=== PATIENT | male | born 1960 | race Caucasian/White ===

== ENCOUNTER 2021-03-29 15:37 | Emergency (ER) | payer MEDICARE ==
[2021-03-29 16:02] VITALS: BP 109/42; PULSE 82
--- NOTE | 2021-03-29 16:43 | EDM.PDOC ---
ED HPI GENERAL MEDICAL PROBLEM - General Chief Complaint: Skin Complaint Stated Complaint: POSSIBLE INCISION INFECTION Time Seen by Provider: 03/29/21 16:20 Source of Information: Reports: Patient, Family History Limitations: Reports: No Limitations - History of Present Illness INITIAL COMMENTS - FREE TEXT/NARRATIVE: 60-year-old male with type 1 diabetes since he was 13 years old, had a four- vessel bypass surgery 10 days ago. He has had persistent swelling and bruising in his lower extremities especially the left side where most of the vein was harvested but over the past 12 hours he has developed erythema and slight warmth on the anterior aspect of the leg. No fevers or chills, he feels okay but his is very concerned that he is developing an infection. Onset: Gradual Duration: Hour(s): (Redness has shown up just in the last 12 hours) Location: Reports: Lower Extremity, Left Associated Symptoms: Reports: Chest Pain (Postsurgical pain as expected), Weakness. Denies: Fever/Chills, Shortness of Breath chest Pain Score (Numeric/FACES): 3 - Related Data Allergies Allergy/AdvReac Type Severity Reaction Status Date / Time Sulfa (Sulfonamide Allergy Headache Verified 03/29/21 16:01 Antibiotics) bee venom Allergy Hives Uncoded 03/29/21 16:01 Home Meds: Home Meds Clopidogrel [Plavix] 75 mg PO DAILY 11/08/14 [History] Lisinopril 40 mg PO DAILY 11/08/14 [History] Insulin NPH Human Isophane [Novolin N] 50 units SUBCUT BID 11/17/17 [History] Insulin Regular, Human [NovoLIN R] 20 unit SQ BID 11/17/17 [History] DULoxetine [Cymbalta] 20 mg PO BID 01/03/21 [History] Aspirin [Adult Low Dose Aspirin EC] 81 mg PO DAILY 03/29/21 [History] Ferrous Sulfate 325 mg PO DAILY 03/29/21 [History] Furosemide 80 mg PO BID 03/29/21 [History] Metoprolol Tartrate 75 mg PO BID 03/29/21 [History] Potassium Chloride 20 meq PO DAILY 03/29/21 [History] atorvaSTATin [Lipitor] 40 mg PO BEDTIME 03/29/21 [History] metOLazone [Zaroxolyn] 2.5 mg PO DAILY 03/29/21 [History] oxyCODONE HCl/Acetaminophen [Oxycodone-Acetaminophen 5-325] 1 tab PO Q6H PRN 03/29/21 [History] Past Medical History HEENT History: Reports: Impaired Vision, Other (See Below) Other HEENT History: retinopothy. 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: 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 Hematologic History: Reports: Anticoagulation Therapy, Other (See Below) Other Hematologic History: On Plavix - Infectious Disease History Infectious Disease History: Reports: Chicken Pox - Past Surgical History HEENT Surgical History: Reports: Laser Surgery Cardiovascular Surgical History: Reports: Coronary Artery Bypass, Other (See Below) Other Cardiovascular Surgeries/Procedures: Stent in left upper thigh GI Surgical History: Reports: None Male Surgical History: Reports: None Endocrine Surgical History: Reports: None Neurological Surgical History: Reports: None Musculoskeletal Surgical History: Reports: Carpal Tunnel Social & Family History - Family History Cardiac: Reports: Hypertension, [place] Endocrine/Metabolic: Reports: Diabetes, type II - Tobacco Use Tobacco Use Status *Q: Never Tobacco User Second Hand Smoke Exposure: No - Caffeine Use Caffeine Use: Reports: Coffee, Soda - Alcohol Use Days Per Week of Alcohol Use: 0 - Recreational Drug Use Recreational Drug Use: No ED ROS GENERAL - Review of Systems Review Of Systems: See Below Constitutional: Denies: Fever, Chills HEENT: Reports: No Symptoms Respiratory: Denies: Shortness of Breath, Cough GI/Abdominal: Denies: Nausea, Vomiting Skin: Reports: Erythema (Erythema is present on the anterior aspect of the left lower leg, minimal warmth compared to surrounding skin), Other (Small healing ulcer on the base of the left foot, widespread bruising especially of the inner aspect of the left leg) Neurological: Reports: Other (Fairly significant diabetic neuropathy of the lower extremities) Psychiatric: Reports: No Symptoms ED EXAM, SKIN/RASH Exam: See Below Exam Limited By: No Limitations General Appearance: Alert, No Apparent Distress Head: Atraumatic Respiratory/Chest: No Respiratory Distress, Lungs Clear Cardiovascular: Regular Rate, Rhythm GI/Abdominal: Non-Tender Extremities: Other (Significant bruising on the inside of the left thigh extending down to the posterior calf on the left leg. Some anterior erythema on the lower leg which is slightly warmer than surrounding skin. No streaks.) Psychiatric: Normal Affect, Normal Mood Course - Vital Signs Last Recorded V/S: Last Vital Signs Temp 98.1 F 03/29/21 16:19 Pulse 82 03/29/21 16:19 Resp 16 03/29/21 16:19 BP 109/42 L 03/29/21 16:19 Pulse Ox 95 03/29/21 16:19 - Re-Assessments/Exams Free Text/Narrative Re-Assessment/Exam: 03/29/21 16:41 Patient was started on cephalexin 500 mg 3 times a day for the next 7 days, he does have a postop check with his surgeon in 2 days. Because the patient is not feverish and the erythema is not significantly warm, this may be just postoperative changes or vasculitis and not infection but the risk of not treating an early infection is too great in this patient. Recheck in 2 days unless worsening. Departure - Departure Time of Disposition: 17:20 Disposition: Home, Self-Care 01 Clinical Impression: Cellulitis of left lower extremity Diabetes mellitus Qualifiers: Diabetes mellitus type: type 1 Diabetes mellitus complication status: with circulatory complication Diabetes mellitus complication detail: with other circulatory complications Qualified Code(s): E10.59 - Type 1 diabetes mellitus with other circulatory complications - Discharge Information Instructions: Cellulitis, Adult Referrals: Floyd Borrego MD [Primary Care Provider] - Forms: ED Department Discharge Care Plan Goals: Take antibiotic 3 times a day until gone, recheck on Wednesday as scheduled and return anytime if worsening such as vomiting the medication, persistent fever or chills, or difficulty breathing. Sepsis Event Note (ED) - Evaluation Sepsis Screening Result: No Definite Risk - Focused Exam Vital Signs: Vital Signs Temp Pulse Resp BP Pulse Ox 03/29/21 16:19 98.1 F 82 16 109/42 L 95 03/29/21 15:56 98.1 F 82 16 109/42 L 95
== END 2021-03-29 17:10 | disposition home or self-care (01) ==
LOC: JP.ED 15:37
DX: L03.116 Cellulitis of left lower limb (principal); E10.59 Type 1 diabetes mellitus with other circulatory complications; E78.00 Pure hypercholesterolemia, unspecified; I10 Essential (primary) hypertension; I25.2 Old myocardial infarction; E66.9 Obesity, unspecified; Z68.30 Body mass index [BMI] 30.0-30.9, adult; Z95.5 Presence of coronary angioplasty implant and graft; Z79.82 Long term (current) use of aspirin; Z79.02 Long term (current) use of antithrombotics/antiplatelets; Z79.899 Other long term (current) drug therapy
CPT/HCPCS: 99283

== ENCOUNTER 2021-09-21 13:02 | Emergency (ER) | payer MEDICARE | END 2021-09-21 13:19 | disposition left against medical advice (07) | LOC: JP.ED 13:02 | DX: S09.301A Unspecified injury of right middle and inner ear, initial encounter (principal); Z53.21 Procedure and treatment not carried out due to patient leaving prior to being seen by health care provider ==

== ENCOUNTER 2021-09-21 17:56 | Emergency (ER) | payer MEDICARE ==
[2021-09-21 18:39] VITALS: BP 124/49; PULSE 84
--- NOTE | 2021-09-21 18:52 | EDM.PDOC ---
ED HPI GENERAL MEDICAL PROBLEM - General Chief Complaint: ENT Problem Stated Complaint: Q-TIP BROKE OFF IN EAR Time Seen by Provider: 09/21/21 18:40 Source of Information: Reports: Patient History Limitations: Reports: No Limitations - History of Present Illness INITIAL COMMENTS - FREE TEXT/NARRATIVE: 61-year-old male with a foreign body in his right ear canal. Earlier today he was using a Q-tip, when he pulled the Q-tip out the cotton was gone and he feels a foreign body sensation in the ear. There is no pain. No other complaints. Onset: Sudden Duration: Hour(s): (About 8 hours ago) Location: Reports: Other (Right ear) Associated Symptoms: Reports: No Other Symptoms denies Pain Score (Numeric/FACES): 0 - Related Data Allergies Allergy/AdvReac Type Severity Reaction Status Date / Time Sulfa (Sulfonamide Allergy Headache Verified 09/21/21 18:48 Antibiotics) bee venom Allergy Hives Uncoded 09/21/21 18:48 Home Meds: Home Meds Clopidogrel [Plavix] 75 mg PO DAILY 11/08/14 [History] Lisinopril 40 mg PO DAILY 11/08/14 [History] Insulin NPH Human Isophane [Novolin N] 50 units SUBCUT BID 11/17/17 [History] Insulin Regular, Human [NovoLIN R] 20 unit SQ BID 11/17/17 [History] DULoxetine [Cymbalta] 20 mg PO BID 01/03/21 [History] Aspirin [Adult Low Dose Aspirin EC] 81 mg PO DAILY 03/29/21 [History] Furosemide 80 mg PO BID 03/29/21 [History] Metoprolol Tartrate 75 mg PO BID 03/29/21 [History] Potassium Chloride 20 meq PO DAILY 03/29/21 [History] atorvaSTATin [Lipitor] 40 mg PO BEDTIME 03/29/21 [History] metOLazone [Zaroxolyn] 2.5 mg PO DAILY 03/29/21 [History] Past Medical History HEENT History: Reports: Impaired Vision, Other (See Below) Other HEENT History: retinopothy. laser eye surgery Cardiovascular History: Reports: High Cholesterol, Hypertension, [place], Stents Other Cardiovascular History: heart attack x 3 Gastrointestinal History: Reports: Other (See Below) Other Gastrointestinal History: Gastro parsesis Genitourinary History: Reports: Other (See Below) Other Genitourinary History: frequency Musculoskeletal History: Reports: Fracture, Osteoarthritis Other Musculoskeletal History: right shoulder impingement syndrome Psychiatric History: Reports: Anxiety Endocrine/Metabolic History: Reports: Diabetes, Type I, Obesity/BMI 30+ Other Endocrine/Metabolic History: meterman insulin use Hematologic History: Reports: Anticoagulation Therapy, Other (See Below) Other Hematologic History: On Plavix - Infectious Disease History Infectious Disease History: Reports: Chicken Pox - Past Surgical History HEENT Surgical History: Reports: Laser Surgery Cardiovascular Surgical History: Reports: Coronary Artery Bypass, Other (See Below) Other Cardiovascular Surgeries/Procedures: Stent in left upper thigh GI Surgical History: Reports: None Male Surgical History: Reports: None Endocrine Surgical History: Reports: None Neurological Surgical History: Reports: None Musculoskeletal Surgical History: Reports: Carpal Tunnel Social & Family History - Family History Cardiac: Reports: Hypertension, [place] Endocrine/Metabolic: Reports: Diabetes, type II - Caffeine Use Caffeine Use: Reports: Coffee, Soda ED ROS ENT - Review of Systems Review Of Systems: See Below Constitutional: Denies: Fever, Chills HEENT: Reports: Other (Foreign body right ear) Respiratory: Reports: No Symptoms GI/Abdominal: Reports: No Symptoms Skin: Reports: No Symptoms Neurological: Reports: No Symptoms ED EXAM, ENT - Physical Exam Exam: See Below Exam Limited By: No Limitations General Appearance: Alert, No Apparent Distress Ears: Other (Left ear canal is clear, the right appears to have a fairly large white foreign body) Head: Atraumatic Respiratory/Chest: No Respiratory Distress Neurological: Alert, Oriented Psychiatric: Normal Affect, Normal Mood Skin: Warm, Dry Course - Vital Signs Last Recorded V/S: Last Vital Signs Temp 98.0 F 09/21/21 18:49 Pulse 84 09/21/21 18:49 Resp 16 09/21/21 18:49 BP 124/49 L 09/21/21 18:49 Pulse Ox 95 09/21/21 18:49 - Re-Assessments/Exams Free Text/Narrative Re-Assessment/Exam: 09/21/21 18:51 A small alligator clamp was used to gently remove the large piece of cotton. This was done without complications or difficulty. Reexamination showed a clean canal. No further treatment needed. Departure - Departure Time of Disposition: 18:54 Disposition: Home, Self-Care 01 Clinical Impression: Acute foreign body of right ear canal Qualifiers: Encounter type: initial encounter Qualified Code(s): T16.1XXA - Foreign body in right ear, initial encounter - Discharge Information Instructions: Ear Foreign Body, [id number] Referrals: Floyd Borrego MD [Primary Care Provider] - Forms: ED Department Discharge Care Plan Goals: Return as needed. Sepsis Event Note (ED) - Focused Exam Vital Signs: Vital Signs Temp Pulse Resp BP Pulse Ox 09/21/21 18:49 98.0 F 84 16 124/49 L 95 09/21/21 18:38 98.0 F 84 16 124/49 L 95
== END 2021-09-21 18:56 | disposition home or self-care (01) ==
LOC: JP.ED 17:56
DX: T16.1XXA Foreign body in right ear, initial encounter (principal); E78.00 Pure hypercholesterolemia, unspecified; I10 Essential (primary) hypertension; I25.2 Old myocardial infarction; M19.90 Unspecified osteoarthritis, unspecified site; E10.43 Type 1 diabetes mellitus with diabetic autonomic (poly)neuropathy; K31.84 Gastroparesis; E66.9 Obesity, unspecified; Z68.34 Body mass index [BMI] 34.0-34.9, adult; Z88.2 Allergy status to sulfonamides; Z91.030 Bee allergy status; Z79.02 Long term (current) use of antithrombotics/antiplatelets; Z79.82 Long term (current) use of aspirin; Z79.899 Other long term (current) drug therapy
CPT/HCPCS: 69200; 99282-25

== ENCOUNTER 2022-09-13 20:43 | Emergency (ER) | payer MEDICARE ==
[2022-09-13 21:11] VITALS: BP 164/61; PULSE 84
== END 2022-09-13 23:24 | disposition home or self-care (01) ==
LOC: JP.ED 20:43
DX: L03.116 Cellulitis of left lower limb (principal); E78.00 Pure hypercholesterolemia, unspecified; I10 Essential (primary) hypertension; E10.9 Type 1 diabetes mellitus without complications; E66.9 Obesity, unspecified; Z68.34 Body mass index [BMI] 34.0-34.9, adult; Z95.1 Presence of aortocoronary bypass graft; Z88.2 Allergy status to sulfonamides; Z91.030 Bee allergy status; Z79.4 Long term (current) use of insulin; Z79.02 Long term (current) use of antithrombotics/antiplatelets; Z79.82 Long term (current) use of aspirin; Z79.899 Other long term (current) drug therapy
CPT/HCPCS: 36415; 80048; 83605; 84145; 85025; 85379; 93971-LT; 99284

== ENCOUNTER 2023-10-04 06:55 | Emergency (ER) | payer MEDICARE ==
[2023-10-04] MEDS ORDERED: Nitroglycerin 0.4 MG Tab.SL SL PRN (07:07)
[2023-10-04] MEDS ORDERED: Sodium Chloride 0.9% 10 ML Syringe FLUSH PRN (07:07)
[2023-10-04] MEDS ORDERED: Morphine 4 MG/ML Syringe IVPUSH PRN (07:07)
[2023-10-04] MEDS ORDERED: Aspirin 81 MG Tab.Chew PO ONE (07:07)
[2023-10-04 07:16] LABS: BASOPHILS PERCENT AUTO 0.1 % (0.1-1.3); EOSINOPHILS ABSOLUTE AUTO 0.03 K/uL (0.00-0.40); EOSINOPHILS PERCENT AUTO 0.4 % (0.0-5.4); HEMATOCRIT 39.1 % (38.4-49.7); HEMOGLOBIN 12.5 g/dL (12.9-16.9); IMMATURE GRAN ABSOLUTE AUTO 0.04 K/uL (0.00-0.23); IMMATURE GRAN PERCENT AUTO 0.5 % (0.0-0.7); LYMPHOCYTES ABSOLUTE AUTO 1.82 K/uL (0.8-3.3); LYMPHOCYTES PERCENT AUTO 24.7 % (11.4-47.7); MEAN CORPUSCULAR HEMOGLOBIN 27.4 pg (31.6-35.5); MEAN CORPUSCULAR VOLUME 85.6 fL (81.4-99.0); MONOCYTES ABSOLUTE AUTO 0.54 K/uL (0.20-0.90); MONOCYTES PERCENT AUTO 7.3 % (3.3-12.6); NEUTROPHILS ABSOLUTE AUTO 4.92 K/uL (1.0-7.6); PLATELET COUNT,PLT 166 K/uL (130-375); RED BLOOD CELL COUNT 4.57 M/uL (4.14-5.76); WHITE BLOOD CELL COUNT,WBC 7.4 K/uL (3.2-11.0)
[2023-10-04 07:17] LABS: BASOPHILS ABSOLUTE AUTO 0.01 K/uL (0.00-0.10)
[2023-10-04 07:38] LABS: A/G RATIO 0.8 (1.2-2.2); ALANINE AMINOTRANSFERASE,ALT 25 U/L (12-78); ALBUMIN 3.2 g/dL (3.4-5.0); ALKALINE PHOSPHATASE 80 U/L (46-116); ASPARTATE AMNIOTRANSFERASE,AST 31 U/L (15-37); BILIRUBIN TOTAL 0.3 mg/dL (0.2-1.0); BLOOD UREA NITROGEN,BUN 23 mg/dL (7-18); CALCIUM 8.7 mg/dL (8.5-10.1); CARBON DIOXIDE,CO2 27 mmol/L (21-32); CHLORIDE,CL 98 mmol/L (100-108); CREATININE 1.2 mg/dL (0.8-1.3); EST CRCL DRUG DOSING (CG) 64.64 mL/min; ESTIMATED GFR 69 mL/min (>60); GLUCOSE RANDOM 267 mg/dL (74-106); POTASSIUM,K 3.8 mmol/L (3.6-5.2); PROTEIN TOTAL,TP 7.4 g/dL (6.4-8.2); SODIUM,NA 136 mmol/L (140-148)
[2023-10-04 07:42] LABS: ANION GAP 14.8 mmol/L (5.0-14.0)
[2023-10-04 08:03] LABS: INFLUENZA A NAA NEGATIVE (NEGATIVE); INFLUENZA B NAA NEGATIVE (NEGATIVE); RESPIRATORY SYNCYTIAL VIR NAA NEGATIVE (NEGATIVE)
[2023-10-04 08:06] LABS: CORONAVIRUS COVID-19 NAA POSITIVE (NEGATIVE)
[2023-10-04 10:51] VITALS: PULSE 78
[2023-10-04] MEDS ORDERED: Heparin Sodium 5,000 Units/ML Vial IVPUSH ONE (13:10)
[2023-10-04] MEDS ORDERED: Heparin Sodium/D5W 25,000 UNITS/500 ML BAG IV SCH (13:15)
[2023-10-04 14:29] VITALS: BP 144/53
== END 2023-10-04 15:16 ==
LOC: JP.ED 06:55
DX: I21.4 Non-ST elevation (NSTEMI) myocardial infarction (principal); I10 Essential (primary) hypertension; E78.00 Pure hypercholesterolemia, unspecified; I25.10 Atherosclerotic heart disease of native coronary artery without angina pectoris; E10.9 Type 1 diabetes mellitus without complications; E66.9 Obesity, unspecified; M19.90 Unspecified osteoarthritis, unspecified site; Z79.82 Long term (current) use of aspirin; Z95.1 Presence of aortocoronary bypass graft; Z79.4 Long term (current) use of insulin; Z88.2 Allergy status to sulfonamides; Z91.030 Bee allergy status; Z68.34 Body mass index [BMI] 34.0-34.9, adult; Z20.822 Contact with and (suspected) exposure to COVID-19
CPT/HCPCS: 0241U; 36415; 71045; 71045-26; 80053; 82947; 84484; 85025; 93005; 96365; 99285-25; A9270-GY; J1644; J3490

== ENCOUNTER 2023-12-19 15:46 | Emergency (ER) | payer MEDICARE ==
[2023-12-19 16:56] LABS: BASOPHILS PERCENT AUTO 0.3 % (0.1-1.3); EOSINOPHILS ABSOLUTE AUTO 0.12 K/uL (0.00-0.40); EOSINOPHILS PERCENT AUTO 1.9 % (0.0-5.4); HEMATOCRIT 37.6 % (38.4-49.7); HEMOGLOBIN 12.4 g/dL (12.9-16.9); IMMATURE GRAN PERCENT AUTO 0.3 % (0.0-0.7); LYMPHOCYTES ABSOLUTE AUTO 1.65 K/uL (0.8-3.3); LYMPHOCYTES PERCENT AUTO 25.6 % (11.4-47.7); MEAN CORPUSCULAR HEMOGLOBIN 27.7 pg (31.6-35.5); MEAN CORPUSCULAR VOLUME 84.1 fL (81.4-99.0); MONOCYTES ABSOLUTE AUTO 0.48 K/uL (0.20-0.90); MONOCYTES PERCENT AUTO 7.4 % (3.3-12.6); NEUTROPHILS ABSOLUTE AUTO 4.16 K/uL (1.0-7.6); NEUTROPHILS PERCENT AUTO 64.5 % (40.0-78.1); PLATELET COUNT,PLT 150 K/uL (130-375); RED BLOOD CELL COUNT 4.47 M/uL (4.14-5.76); WHITE BLOOD CELL COUNT,WBC 6.5 K/uL (3.2-11.0)
[2023-12-19 16:59] LABS: BASOPHILS ABSOLUTE AUTO 0.02 K/uL (0.00-0.10); IMMATURE GRAN ABSOLUTE AUTO 0.02 K/uL (0.00-0.23)
[2023-12-19 17:15] LABS: CALCIUM 9.3 mg/dL (8.5-10.1); CREATININE 1.2 mg/dL (0.8-1.3); EST CRCL DRUG DOSING (CG) 62.54 mL/min; POTASSIUM,K 4.8 mmol/L (3.6-5.2)
[2023-12-19 17:16] LABS: ANION GAP 13.8 mmol/L (5.0-14.0)
[2023-12-19 18:30] VITALS: BP 151/52; PULSE 79
[2023-12-19] MEDS: Sodium Chloride 0.9% 10 ML Syringe FLUSH ONE (18:35)
[2023-12-19] MEDS: Iopamidol 755 Mg/ML 100 ML Bottle IV SCH (18:35)
[2023-12-19] MEDS: Sodium Chloride 0.9% 100 ML IV SCH (18:35)
== END 2023-12-19 20:34 | disposition home or self-care (01) ==
LOC: JP.ED 15:46
DX: Z48.812 Encounter for surgical aftercare following surgery on the circulatory system (principal); I10 Essential (primary) hypertension; I25.2 Old myocardial infarction; I25.810 Atherosclerosis of coronary artery bypass graft(s) without angina pectoris; E78.00 Pure hypercholesterolemia, unspecified; E66.9 Obesity, unspecified; E11.9 Type 2 diabetes mellitus without complications; Z88.2 Allergy status to sulfonamides; Z91.030 Bee allergy status; Z79.4 Long term (current) use of insulin; Z79.82 Long term (current) use of aspirin; Z79.899 Other long term (current) drug therapy; Z68.35 Body mass index [BMI] 35.0-35.9, adult
CPT/HCPCS: 36415; 73706; 80048; 85025; 99284; J3490; Q9967

== ENCOUNTER 2024-10-20 09:37 | Inpatient (IN) | payer MEDICARE, OTHER ==
[2024-10-20] MEDS: Albuterol/Ipratropium 3.0-0.5 MG/3 ML Neb Soln NEB ONE (10:24)
[2024-10-20 11:22] LABS: BASOPHILS PERCENT AUTO 0.2 % (0.1-1.3); EOSINOPHILS ABSOLUTE AUTO 0.03 K/uL (0.00-0.40); EOSINOPHILS PERCENT AUTO 0.7 % (0.0-5.4); HEMATOCRIT 39.3 % (38.4-49.7); IMMATURE GRAN PERCENT AUTO 0.2 % (0.0-0.7); LYMPHOCYTES ABSOLUTE AUTO 1.11 K/uL (0.8-3.3); MEAN CORPUSCULAR HEMOGLOBIN 28.5 pg (31.6-35.5); MEAN CORPUSCULAR HGB CONC 33.1 g/dL (31.6-35.5); MEAN CORPUSCULAR VOLUME 86.2 fL (81.4-99.0); MONOCYTES PERCENT AUTO 9.4 % (3.3-12.6); NEUTROPHILS ABSOLUTE AUTO 2.71 K/uL (1.0-7.6); NEUTROPHILS PERCENT AUTO 63.5 % (40.0-78.1); PLATELET COUNT,PLT 109 K/uL (130-375); RED BLOOD CELL COUNT 4.56 M/uL (4.14-5.76); WHITE BLOOD CELL COUNT,WBC 4.3 K/uL (3.2-11.0)
[2024-10-20 11:24] LABS: BASOPHILS ABSOLUTE AUTO 0.01 K/uL (0.00-0.10); IMMATURE GRAN ABSOLUTE AUTO 0.01 K/uL (0.00-0.23)
[2024-10-20] MEDS: Azithromycin 250 MG Tab PO ONE (11:24)
[2024-10-20] MEDS: methylPREDNISolone Sodium Succinate 125 MG/2 ML SDV IVPUSH ONE ×2 (11:25→21:00)
[2024-10-20] MEDS: cefTRIAXone 1 GM in Sodium Chloride 0.9% 50 ML IV ONE (11:31)
[2024-10-20 11:34] LABS: CALCIUM 8.7 mg/dL (8.5-10.1); CREATININE 1.1 mg/dL (0.8-1.3); EST CRCL DRUG DOSING (CG) 67.36 mL/min
[2024-10-20] MEDS ORDERED: Ondansetron 4 MG/2 ML SDV IV PRN (14:31)
[2024-10-20] MEDS ORDERED: Magnesium Hydroxide 400 MG/5 ML Susp 30 ML Cup PO PRN (14:31)
[2024-10-20] MEDS ORDERED: Benzonatate 100 MG Cap PO PRN (14:31)
[2024-10-20] MEDS ORDERED: guaiFENesin/Dextromethorphan 100-10 MG/5 ML Soln 10 ML Cup PO PRN (14:31)
[2024-10-20] MEDS ORDERED: Acetaminophen 325 MG Tab PO PRN (14:31)
[2024-10-20] MEDS ORDERED: Albuterol 0.083% 2.5 MG/3 ML Neb Soln NEB PRN (14:31)
[2024-10-20] MEDS ORDERED: Sennosides/Docusate Sodium 50-8.6 MG Tab PO PRN (14:31)
[2024-10-20] MEDS ORDERED: Ondansetron 4 MG Tab.DIS PO PRN (14:31)
[2024-10-20] MEDS: Albuterol/Ipratropium 3.0-0.5 MG/3 ML Neb Soln NEB SCH (15:05)
[2024-10-20] MEDS: Insulin Isophane NPH, Human 100 Units/ML 10 ML Vial SUBCUT SCH (17:35)
[2024-10-20] MEDS: Insulin Lispro 100 Unit/ML 3 ML KwikPen SUBCUT SCH (17:36)
[2024-10-20] MEDS: Lactobacillus Rhamnosus GG (Probiotic) Cap PO SCH (21:00)
[2024-10-20] MEDS: Rosuvastatin 10 MG Tab PO SCH (21:00)
[2024-10-20] MEDS: Cefdinir 300 MG Cap PO SCH (21:00)
[2024-10-20] MEDS: DULoxetine 20 MG Cap PO SCH (21:01)
[2024-10-20] MEDS: Metoprolol Tartrate 50 MG Tab PO SCH (21:04)
[2024-10-20] MEDS: Clopidogrel 75 MG Tab PO SCH (21:05)
[2024-10-20] MEDS: Insulin Lispro 100 Unit/ML 3 ML KwikPen SUBCUT ONE (21:32)
[2024-10-21 04:50] LABS: HEMOGLOBIN 12.8 g/dL (12.9-16.9); MEAN CORPUSCULAR HGB CONC 33.7 g/dL (31.6-35.5); MEAN CORPUSCULAR VOLUME 86.2 fL (81.4-99.0); RED BLOOD CELL COUNT 4.41 M/uL (4.14-5.76)
[2024-10-21 05:11] LABS: CALCIUM 8.7 mg/dL (8.5-10.1); CREATININE 1.3 mg/dL (0.8-1.3); POTASSIUM,K 4.8 mmol/L (3.6-5.2)
[2024-10-21 05:20] LABS: ANION GAP 11.8 mmol/L (5.0-14.0)
[2024-10-21] MEDS: predniSONE 20 MG Tab PO SCH (07:53)
[2024-10-21] MEDS: Azithromycin 250 MG Tab PO SCH (09:52)
[2024-10-21] MEDS: Folic Acid 1 MG Tab PO SCH (09:52)
[2024-10-21] MEDS: Lisinopril 20 MG Tab PO SCH (09:53)
[2024-10-21] MEDS: amLODIPine 5 MG Tab PO SCH (09:54)
[2024-10-21] MEDS: Aspirin 81 MG Tab.EC PO SCH (09:54)
[2024-10-21] MEDS ORDERED: FLU (Fluarix Triv) TS24-25(6MOS UP)/PF 45 MCG/0.5 ML Syringe IM ONE (10:00)
[2024-10-21] MEDS: Furosemide 20 MG/2 ML VIAL IVPUSH ONE (10:06)
[2024-10-21] MEDS ORDERED: Glucagon,Human Recombinant 1 MG Vial IM PRN (11:35)
[2024-10-21] MEDS ORDERED: 50% Dextrose in Water 50 ML Syringe IVPUSH PRN (11:35)
[2024-10-21] MEDS: Insulin Lispro 100 Unit/ML 3 ML KwikPen SUBCUT SCH (11:37)
[2024-10-21] MEDS: Insulin Lispro 100 Unit/ML 3 ML KwikPen SUBCUT ONE ×2 (11:45→16:47)
[2024-10-22] MEDS: predniSONE 20 MG Tab PO SCH (07:49)
[2024-10-22] MEDS ORDERED: FLU (Fluarix Triv) TS24-25(6MOS UP)/PF 45 MCG/0.5 ML Syringe IM ONE (10:00)
[2024-10-22 10:52] VITALS: BP 146/59; PULSE 84
== END 2024-10-22 11:15 | disposition home or self-care (01) | DRG 202 ==
LOC: JP.ED 09:37 → JP.MS 13:33
PROVIDERS: ADMIT Internal Medicine; ATTEND Internal Medicine
DX: J20.9 Acute bronchitis, unspecified (principal); E10.9 Type 1 diabetes mellitus without complications; J96.01 Acute respiratory failure with hypoxia; J44.1 Chronic obstructive pulmonary disease with (acute) exacerbation; J44.0 Chronic obstructive pulmonary disease with (acute) lower respiratory infection; E10.42 Type 1 diabetes mellitus with diabetic polyneuropathy; E78.00 Pure hypercholesterolemia, unspecified; H54.7 Unspecified visual loss; I25.10 Atherosclerotic heart disease of native coronary artery without angina pectoris; I50.9 Heart failure, unspecified; I11.0 Hypertensive heart disease with heart failure; H26.9 Unspecified cataract; M19.90 Unspecified osteoarthritis, unspecified site; F15.90 Other stimulant use, unspecified, uncomplicated; J45.909 Unspecified asthma, uncomplicated; F41.9 Anxiety disorder, unspecified; Z87.81 Personal history of (healed) traumatic fracture; Z79.01 Long term (current) use of anticoagulants; Z98.49 Cataract extraction status, unspecified eye; Z88.2 Allergy status to sulfonamides; Z91.030 Bee allergy status; Z79.82 Long term (current) use of aspirin; Z79.4 Long term (current) use of insulin; Z79.899 Other long term (current) drug therapy; Z79.02 Long term (current) use of antithrombotics/antiplatelets; Z95.1 Presence of aortocoronary bypass graft; Z95.5 Presence of coronary angioplasty implant and graft
CPT/HCPCS: 36415; 71046; 80048; 83605; 84145; 85025; 86140; 87428; 94640; 96365; 96375; 99285; A9270; J0696; J2919; J3490; 82947; 85027; 94667; J1815; J1815-GY; J1940; J7512; J7620